=== PATIENT | female | born 1955 | race Caucasian/White ===

== ENCOUNTER 2021-04-25 09:31 | Emergency (ER) | payer SELFPAY ==
[2021-04-25 09:45] VITALS: TEMP 98.5; BMI 39.4
[2021-04-25 11:21] LABS: BASO % 0.6 % (0-2.0); EOS % 0.8 % (0-4.5); HEMATOCRIT 38.3 % (32.4-45.2); HEMOGLOBIN 12.7 GM/dL (10.7-15.3); LYMPH % 31.5 % (8-40); MCH 28.3 pg (25.7-33.7); MCHC 33.2 g/dl (32.0-36.0); MEAN CELL VOLUME 85.3 fl (80-96); MEAN PLT VOLUME 7.8 fl (7.5-11.1); MONO % 6.2 % (3.8-10.2); NEUT % 60.9 % (42.8-82.8); PLATELET COUNT 290 10^3/uL (134-434); RDW 14.3 % (11.6-15.6); WHITE BLOOD COUNT 5.4 K/mm3 (4.0-10.0)
[2021-04-25 11:46] LABS: ALBUMIN 3.9 g/dl (3.4-5.0)
[2021-04-25 11:47] LABS: BLOOD UREA NITROGEN 13.6 mg/dL (7-18)
[2021-04-25 11:50] LABS: CREATININE 0.7 mg/dL (0.55-1.3)
[2021-04-25 11:51] LABS: BILIRUBIN,TOTAL 0.5 mg/dL (0.2-1); TOT PROT 7.5 g/dl (6.4-8.2)
[2021-04-25 12:19] LABS: PH,URINE 5.5 (5.0-8.0); URINE APPEARANCE Clear; URINE BILIRUBIN Negative (NEGATIVE); URINE COLOR Yellow; URINE GLUCOSE (UA) Negative (NEGATIVE); URINE KETONE Negative (NEGATIVE); URINE LEUK ESTERASE 1+ (NEGATIVE); URINE NITRITE Negative (NEGATIVE); URINE PROTEIN Negative (NEGATIVE); URINE UROBILINOGEN 0.2 mg/dL (0.2-1.0)
[2021-04-25 13:48] VITALS: BP 116/70; PULSE 74
[2021-04-25 15:13] LABS: EPI CELLS FEW /HPF; URINE WBC 5-110 (NEGATIVE)
== END 2021-04-25 13:51 | disposition home or self-care (01) ==
LOC: JER 09:31
DX: I87.2 Venous insufficiency (chronic) (peripheral) (principal); R60.0 Localized edema; R30.0 Dysuria; M79.671 Pain in right foot; N30.01 Acute cystitis with hematuria
CPT/HCPCS: 36415; 73630-TC-RT-FY; 74176-TC; 80053; 81003; 83880; 85025; 87086; 93970-TC; 99285-25

== ENCOUNTER 2021-05-06 10:20 | Emergency (ER) | payer SELFPAY ==
[2021-05-06 10:34] VITALS: BP 125/69; PULSE 91; TEMP 99.7; BMI 35.2
== END 2021-05-06 11:45 | disposition home or self-care (01) ==
LOC: JER 10:20
DX: J06.9 Acute upper respiratory infection, unspecified (principal)
CPT/HCPCS: 99283-25; C9803; U0003; U0005